=== PATIENT | male | born 1945 | race Caucasian/White ===

== ENCOUNTER 2019-01-30 13:47 | Day surgery (SDC) | payer OTHER ==
[~2019-01-30] VITALS: Ht 177.8 cm; Wt 137.3 kg
[2019-01-30] MEDS ORDERED: ASPIRIN81 MG PO (14:07)
[2019-01-30] MEDS ORDERED: BENADRYL25 MG PO (14:08)
[2019-01-30] MEDS ORDERED: ZOCOR20 MG PO (14:08)
[2019-01-30] MEDS ORDERED: CLARITIN 10 MG10 MG PO (14:08)
[2019-01-30 14:50] LABS: APTT 29.6 SECONDS (22.8-39.4); INR 1.08 (0.85-1.17); PROTIME 13.5 SECONDS (11.6-15.0)
[2019-01-30 14:55] LABS: ALBUMIN 3.5 g/dL (3.4-5.0); ANION GAP 16.4 mmol/L (8-16); BASOPHILS 0.4 % (0-2); BILIRUBIN - TOTAL 0.42 mg/dL (0.2-1.3); CALCIUM 8.5 mg/dL (8.5-10.1); CARBON DIOXIDE 22.8 mmol/L (21.0-32.0); CREATININE - SERUM 1.4 mg/dL (0.6-1.3); EOSINOPHILS 0.2 % (0-7); HEMOGLOBIN 14.2 g/dL (13.5-17.5); IMMATURE GRANULOCYTES 0.1 % (0-5); LYMPHOCYTES 18.5 % (15-50); MCH 28.5 pg (26.0-34.0); MCHC 33.8 g/dL (31.0-37.0); MCV 84.3 fL (80.0-100.0); MEAN PLATELET VOLUME 9.9 fL (7.4-10.4); MONOCYTES 8.5 % (2-11); NEUTROPHILS 72.3 % (40-80); PLATELET COUNT 175 10x3/uL (130-400); POTASSIUM - SERUM 4.2 mmol/L (3.5-5.1); PROTEIN - SERUM 7.3 g/dL (6.4-8.2); RBC 4.98 10x6/uL (4.20-6.10); RDW 13.7 % (11.5-14.5)
--- NOTE | 2019-01-30 16:19 | MORECARE ---
CASE MANAGEMENT DISCHARGE SUMMARY PATIENT: DIAN CLEMENS UNIT: [id number] ADM DATE: AGE: 73 : 45 SEX: M ROOM/BED: AUTHOR: EDDA FERRER PHYSICIAN: REFERRING PHYSICIAN: BAYLEE GUZMÁN MD DATE OF SERVICE: 01/30/19 Discharge Plan Patient Name: DIAN CLEMENS [facility] [facility] 1945 Planned Disposition: Anticipated Discharge Date: Discharge Date: Expected LOS: 0 Initial Reviewer: [email or web address] Initial Review Date: 01/30/2019 Generated: 01/30/19 5:19 pm Comments DCP- Discharge Planning Updated by [email or web address]: Luzmaria Antonio on 01/30/19 3:[address] Patient is not stable for transfer to [place] per ER MD. If patient requires admission, please notify [facility] @[phone]. Patient Name: DIAN CLEMENS Page [id number] at 1619 All edits/amendments must be made on the electronic document DICTATION DATE: 01/30/19 161 ENTREPRENEURSHIP PROGRAM DIRECTOR: JULIANO 01/30/19 161 RPT#: [id number] DC DATE: STATUS: REG [facility] [address] [place] [address] END OF REPORT
[2019-01-31 03:07] VITALS: BP 143/71; Ht 177.8 cm; Wt 137.3 kg
[2019-01-31 04:00] VITALS: BP 130/72
[2019-01-31] MEDS ORDERED: KEFLEX500 MG PO (08:16)
[2019-01-31] MEDS ORDERED: HYDROCODON-ACE1 EAC2 PO (08:16)
[2019-01-31 09:06] VITALS: BP 142/66
--- NOTE | 2019-01-31 10:58 | NUR ---
IV DC WITH CATH INTACT, DC INCTURCTIONS GIVEN TO PT FAMILY AT BEDSIDE VERABLIZES UNDERSTANDING, PRESCPTIONS PRINTED AND GIVEN TO PT, LEAVING VIA WHEELCHAIR VIA HOSTPIAL STAFF VIA PRIVATE VECHILE IN STABLE CONDITION
--- NOTE | 2019-02-01 15:12 | MORECARE ---
CASE MANAGEMENT DISCHARGE SUMMARY PATIENT: DIAN CLEMENS UNIT: [id number] ADM DATE: AGE: 73 : 45 SEX: M ROOM/BED: AUTHOR: EDDA FERRER PHYSICIAN: REFERRING PHYSICIAN: RAYMOND STROUD MD DATE OF SERVICE: 02/01/19 Discharge Plan Patient Name: DIAN CLEMENS [facility] [facility] 1945 Planned Disposition: Anticipated Discharge Date: Discharge Date: 01/31/2019 Expected LOS: 0 Initial Reviewer: [email or web address] Initial Review Date: 01/30/2019 Generated: 02/01/19 4:12 pm Comments DCP- Discharge Planning Updated by [email or web address]: Luzmaria Antonio on 01/30/19 3:[address] Patient is not stable for transfer to [place] per ER MD. If patient requires admission, please notify [facility] @[phone]. Last DP export: 01/30/19 3:19 p Patient Name: DIAN CLEMENS Page [id number] at 1512 All edits/amendments must be made on the electronic document DICTATION DATE: 02/01/191511 SOFTWARE SALES CONSULTANT: JULIANO 02/01/191511 RPT#: [id number] DC DATE:01/31/19 STATUS: [address] [id number] END OF REPORT
== END 2019-01-31 11:05 | disposition home or self-care (01) ==
LOC: D.ER 13:47 → D.OPS 16:38 → D.SDCHOLD 16:38 → D.MS 18:57 → D.OPS 01-31 11:05
PROVIDERS: Family Medicine; ATTEND Orthopaedic Surgery
DX: S66.821A Laceration of other specified muscles, fascia and tendons at wrist and hand level, right hand, initial encounter (principal); S61.411A Laceration without foreign body of right hand, initial encounter; S61.412A Laceration without foreign body of left hand, initial encounter; W26.8XXA Contact with other sharp object(s), not elsewhere classified, initial encounter; Z79.82 Long term (current) use of aspirin; Z79.899 Other long term (current) drug therapy; Z88.5 Allergy status to narcotic agent; Z01.812 Encounter for preprocedural laboratory examination

== ENCOUNTER 2019-04-30 19:31 | Emergency (ER) | payer SELFPAY ==
[~2019-04-30] VITALS: Ht 177.8 cm; Wt 140.9 kg
[~2019-04-30 19:31] MED LIST: ASPIRIN81 MG PO; BENADRYL25 MG PO; CLARITIN 10 MG10 MG PO; HYDROCODON-ACE1 EAC2 PO; KEFLEX500 MG PO; ZOCOR20 MG PO
[2019-04-30 19:34] VITALS: Ht 177.8 cm; Wt 140.9 kg
[2019-04-30] MEDS ORDERED: TORADOL10 MG PO (21:04)
[2019-04-30 21:46] VITALS: BP 143/59
== END 2019-04-30 21:46 | disposition home or self-care (01) ==
LOC: D.ER 19:31
DX: M25.552 Pain in left hip (principal)